=== PATIENT | male | born 1995 | race Caucasian/White ===

== ENCOUNTER 2017-10-31 15:12 | Emergency (ER) | payer OTHER ==
[2017-10-31] MEDS ORDERED: KETOROLAC 15 MG/1 ML SDV IVP ONE (15:59)
--- NOTE | 2017-10-31 16:01 | EDPHY ---
H & P Stated Complaint: r flank abd pain n/v Time Seen by Provider: 10/31/17 15:55 HPI/ROS: CHIEF COMPLAINT: Left flank and abdominal pain since 1:00 p.m. Today HISTORY OF PRESENT ILLNESS: 22-year-old male drove himself to the ER complaining of acute onset left flank pain radiating to his left lower abdomen since 1:00 p.m. Today. No trauma. Positive nausea and vomiting. No urinary abnormality such as dysuria hematuria increased frequency. No chest pain. No testicular pain. No back or flank pain. REVIEW OF SYSTEMS: 10 systems reviewed and negative with the exception of the elements mentioned in the history of present illness PAST MEDICAL & SURGICAL HISTORY: No pertinent medical or surgical history. No history of abdominal surgeries SOCIAL HISTORY: Student nonsmoker PHYSICAL EXAM (Prior to examination, patient consented to physical exam, hands were washed and my usual and customary physical exam procedures followed) 1) GENERAL: Well-developed, well-nourished, alert and oriented. Appears anxious and uncomfortable. 2) HEAD: Normocephalic, atraumatic 3) HEENT: Pupils equal, round, reactive to light bilaterally. Sclera anicteric. Nasopharynx, oropharynx, clear, no lesions. Dry mucous membranes. 4) NECK: Full range of motion, no meningeal signs. 5) LUNGS: Clear auscultation bilaterally, no wheezes, no rhonchi, no retractions. 6) HEART: Regular rate and rhythm, no murmur, no heave, no gallop. 7) ABDOMEN: No guarding, no rebound, no focal tenderness, negative McBurney's, negative Mack's, negative Rovsing's, negative peritoneal sign, unable to elicit abdominal pain on exam. 8) MUSCULOSKELETAL: Moving all extremities, no focal areas of tenderness, no obvious trauma. No peripheral edema or discoloration. 9) BACK: No CVA tenderness, no midline vertebral tenderness, no fluctuance, no step-off, no obvious trauma, no visual or palpable abnormality. 10) SKIN: No rash, no petechiae. 11) : Normal male external genitalia, circumcised, bilateral testicles nontender, no high-riding testicle, bilateral cremasteric reflex present and brisk. DIFFERENTIAL DIAGNOSIS: My differential diagnosis includes, but is not limited to, acute appendicitis, acute cholecystitis, bowel obstruction, acute pancreatitis, nephrolithiasis, testicular torsion, gastritis and urinary tract infection. The patient understands that this diagnosis is provisional and can never be 100% accurate. This is a partial list of diagnoses considered. These considerations are based on history, physical exam, past history and reassessment. - Personal History Current Tetanus Diphtheria and Acellular Pertussis (TDAP): Yes - Medical/Surgical History Hx Asthma: No Hx Chronic Respiratory Disease: No Hx Diabetes: No Hx Cardiac Disease: No Hx Renal Disease: No Hx Cirrhosis: No Hx Alcoholism: No Hx HIV/AIDS: No Hx Splenectomy or Spleen Trauma: No Other PMH: denies - Social History Smoking Status: Never smoked Constitutional: Initial Vital Signs Temperature (C) 36.3 C 10/31/17 15:17 Heart Rate 77 10/31/17 15:17 Respiratory Rate 18 10/31/17 15:17 Blood Pressure 103/68 10/31/17 15:17 O2 Sat (%) 100 10/31/17 15:17 O2 Delivery Mode Room Air Allergies/Adverse Reactions: No Known Allergies Allergy (Unverified 10/31/17 15:17) Home Medications: Medication Instructions Recorded Cephalexin [Keflex] 500 mg PO TID 7 Days cap 10/31/17 Hydrocodone/APAP 5/325 [[place] 1 tab PO Q6 PRN #15 tab 10/31/17 5/325 (RX)] Tamsulosin HCl [Flomax] 0.4 mg PO DAILY #7 cap 10/31/17 Medical Decision Making - Diagnostics Imaging Results: Imaging Impressions Abdomen/Pelvis CT 10/31/17 15:59 Impression: 1. 5 mm proximal left ureteral stone with mild obstructive uropathy. 2. Punctate nephrolithiasis. 3. Additional findings as above. Findings discussed with Shelby Ocasio, 10/31/2017 at 16:45. Attention: This CT examination is specifically designed to evaluate patients who are clinically suspected of having acute obstructive uropathy. This examination does not use radiographic contrast and provides only a limited evaluation of the abdomen, pelvis and retroperitoneum. If there is further clinical suspicion for pathological conditions other than obstructive uropathy, a complete CT evaluation of the abdomen and pelvis utilizing intravenous and enteric contrast should be considered. Images reviewed myself ED Course/Re-evaluation: 5:05 p.m.: Re-evaluation, he is smiling, pain-free. Discussed with him his imaging laboratory results. Normal creatinine, 5 mm stone at the proximal ureter with bacteriuria and pyuria present. This will be cultured daily started on Keflex. Will initiate Flomax therapy. No definitive contraindications to Flomax when speaking with the patient further. He feels comfortable being discharged. He will need follow-up with urologist has been given this referral information. He has been given my usual and customary urologic precautions instructions and feels comfortable being discharged. I saw this patient independently based on established practice protocols. Care of patient under supervision of secondary supervising physician Dr Munoz with whom I discussed case. - Data Points Laboratory Results: Laboratory Results 10/31/17 15:59 10/31/17 15:59 10/31/17 10/31/17 10/31/17 15:59 15:59 15:19 WBC 17.31 10^3/uL H 10^3/uL (3.80-9.50) RBC 5.19 10^6/uL 10^6/uL (4.40-6.38) Hgb 15.2 g/dL g/dL (13.7-17.5) Hct 44.4 % % (40.0-51.0) MCV 85.5 fL fL (81.5-99.8) MCH 29.3 pg pg (27.9-34.1) MCHC 34.2 g/dL g/dL (32.4-36.7) RDW 12.4 % % (11.5-15.2) Plt Count 254 10^3/uL 10^3/uL (150-400) MPV 10.2 fL fL (8.7-11.7) Neut % (Auto) 87.1 % H % (39.3-74.2) Lymph % (Auto) 7.6 % L % (15.0-45.0) [place] % (Auto) 4.3 % L % (4.5-13.0) Eos % (Auto) 0.2 % L % (0.6-7.6) Baso % (Auto) 0.3 % % (0.3-1.7) Nucleat RBC Rel Count 0.0 % % (0.0-0.2) Absolute Neuts (auto) 15.10 10^3/uL H 10^3/uL (1.70-6.50) Absolute Lymphs (auto) 1.31 10^3/uL 10^3/uL (1.00-3.00) Absolute Monos (auto) 0.74 10^3/uL 10^3/uL (0.30-0.80) Absolute Eos (auto) 0.03 10^3/uL 10^3/uL (0.03-0.40) Absolute Basos (auto) 0.05 10^3/uL 10^3/uL (0.02-0.10) Absolute Nucleated RBC 0.00 10^3/uL 10^3/uL (0-0.01) Immature Gran % 0.5 % % (0.0-1.1) Immature Gran # 0.08 10^3/uL 10^3/uL (0.00-0.10) Sodium 138 mEq/L mEq/L (135-145) Potassium 4.2 mEq/L mEq/L (3.3-5.0) Chloride 102 mEq/L mEq/L (97-110) Carbon Dioxide 22 mEq/l mEq/l (22-31) Anion Gap 14 mEq/L mEq/L (8-16) BUN 13 mg/dL mg/dL (7-23) Creatinine 1.1 mg/dL mg/dL (0.7-1.3) Estimated GFR > 60 Glucose 171 mg/dL H mg/dL (70-100) Calcium 9.9 mg/dL mg/dL (8.5-10.4) Total Bilirubin 0.7 mg/dL mg/dL (0.1-1.4) Conjugated Bilirubin 0.1 mg/dL mg/dL (0.0-0.5) Unconjugated Bilirubin 0.6 mg/dL mg/dL (0.0-1.1) AST 20 IU/L IU/L (17-59) ALT 26 IU/L IU/L (21-72) Alkaline Phosphatase 60 IU/L IU/L (38-126) Total Protein 7.1 g/dL g/dL (6.3-8.2) Albumin 4.7 g/dL g/dL (3.5-5.0) Lipase 70 IU/L IU/L (23-300) Urine Color HALEY Urine Appearance MODERATELY TURBID Urine pH 5.0 (5.0-7.5) Ur Specific [place] 1.029 (1.002-1.030) Urine Protein 2+ H (NEGATIVE) Urine Ketones 1+ H (NEGATIVE) Urine Blood 3+ H (NEGATIVE) Urine Nitrate NEGATIVE (NEGATIVE) Urine Bilirubin NEGATIVE (NEGATIVE) Urine Urobilinogen 2.0 EU H EU (0.2-1.0) Ur Leukocyte Esterase NEGATIVE (NEGATIVE) Urine RBC 50-182 /hpf H /hpf (0-3) Urine WBC 5-10 /hpf H /hpf (0-3) Ur Epithelial Cells TRACE /lpf /lpf (NONE-1+) Calcium Oxalate Crystal PRESENT /hpf /hpf (NONE-1+) Urine Bacteria 1+ /hpf H /hpf (NONE SEEN) Urine Mucus 4+ /lpf H /lpf (NONE-1+) Urine Glucose NEGATIVE (NEGATIVE) Medications Given: Discontinued Medications Cephalexin HCl (Keflex) 500 mg PO EDNOW ONE PRN Reason: Protocol Stop: 10/31/17 17:04 Last Admin: 10/31/17 17:13 Dose: 500 mg Ketorolac Tromethamine (Toradol) 15 mg IVP EDNOW ONE Stop: 10/31/17 16:00 Last Admin: 10/31/17 16:09 Dose: 15 mg Ondansetron HCl (Zofran) 4 mg IVP EDNOW ONE Stop: 10/31/17 16:19 Last Admin: 10/31/17 16:19 Dose: 4 mg Tamsulosin HCl (Flomax) 0.4 mg PO EDNOW ONE Stop: 10/31/17 17:04 Last Admin: 10/31/17 17:13 Dose: 0.4 mg Departure - Departure Disposition: Home, Routine, Self-Care Clinical Impression: Ureteric stone Condition: Good Instructions: Kidney Stones (ED), Renal Colic (ED) Additional Instructions: Return to the emergency department if you develop worsening pain, if you developed vomiting or any other symptoms that concern you. Referrals: Reid Maradiaga MD [Medical Doctor] - As per Instructions Prescriptions: Cephalexin [Keflex] 500 mg PO TID 7 Days cap Hydrocodone/APAP 5/325 [[place] 5/325 (RX)] 1 tab PO Q6 PRN #15 tab PRN Reason: Pain, Severe Tamsulosin HCl [Flomax] 0.4 mg PO DAILY #7 cap
[2017-10-31 16:09] LABS: PLATELET COUNT 254 10^3/uL (150-400)
[2017-10-31] MEDS ORDERED: ONDANSETRON 4 MG/2 ML VIAL ONE (16:14)
[2017-10-31] MEDS ORDERED: ONDANSETRON 4 MG/2 ML VIAL IVP ONE (16:18)
[2017-10-31] MEDS ORDERED: CEPHALEXIN 500 MG CAP PO ONE (17:03)
[2017-10-31] MEDS ORDERED: TAMSULOSIN HCL 0.4 MG CAP PO ONE (17:03)
[2017-10-31 17:30] VITALS: BP 115/80
== END 2017-10-31 17:30 | disposition home or self-care (01) ==
DX: N20.1 Calculus of ureter (principal)
CPT/HCPCS: 96374; J1885; J2405

== ENCOUNTER 2017-11-19 15:16 | Emergency (ER) | payer OTHER ==
[2017-11-19] MEDS ORDERED: KETOROLAC 30 MG/1 ML SDV IVP ONE (15:43)
[2017-11-19] MEDS ORDERED: HYDROmorphONE/DILAUDID 2 MG/ML INJ IVP ONE (15:43)
[2017-11-19] MEDS ORDERED: ONDANSETRON 4 MG/2 ML VIAL IVP ONE (15:43)
[2017-11-19] MEDS ORDERED: NS 1,000 ML IV ONE ×2 (15:43→16:32)
--- NOTE | 2017-11-19 15:46 | EDPHY ---
H & P Time Seen by Provider: 11/19/17 15:29 HPI/ROS: CHIEF COMPLAINT: Left-sided abdominal pain HISTORY OF PRESENT ILLNESS: Patient was seen in our emergency department on October [address] scan which showed 5 mm left-sided ureteral stone as well as punctate stone in his left kidney and 2 more on the right. He did see Dr. Jair finch Hiren in follow-up and has had minimal on and off pain on the left flank for the last couple of weeks but today at 10:00 a.m. The pain became very severe and located in his left lower abdomen. Radiates to his penis. Not associated with fever chills or diarrhea, or any difference or change with movement. Currently severe. Has vomiting. REVIEW OF SYSTEMS: Eye: no change in vision ENT: no sore throat Cardiac: no chest pain or syncope Pulmonary: no cough or SOB Abdomen: HPI Musculoskeletal: HPI Skin: no rash Neuro: no headache Constitutional: no fever : no urinary symptoms A comprehensive 10 point review of systems is otherwise negative aside from elements mentioned in the history of present illness. PAST MEDICAL HISTORY: Renal colic diagnosed 10/31/2017 in our ED Social history: He was driven to the ED by a friend, nonsmoker General Appearance: Alert and conversant, cooperative. Eyes: No scleral icterus. ENT, Mouth: Normal mucous membranes. Respiratory: Normal respiratory effort, breath sounds equal, lungs are clear to auscultation. Cardiovascular: Regular rate and rhythm. Gastrointestinal: Abdomen is soft and non tender. Male normal, specifically no hernia and normal testicles and penis. No rebound or guarding. Neurological: Alert, face symmetric, normal motor and sensory in extremities. Skin: Warm and dry, no rashes. Musculoskeletal: No peripheral edema. Psychiatric: Not agitated. Emergency Department course/MDM: Likely recurrent renal colic, either from his previously diagnosed 5 mm stone or the other 1 that was in his kidney. Plan for i-STAT, urinalysis, IV Dilaudid 0.5 mg and Toradol 15 mg, and Zofran 4 mg. I think it is unlikely that he has appendicitis, incarcerated hernia, bowel obstruction, other acute surgical abdominal process, pyelonephritis. 1630: Patient is comfortable, will discharge if his urine shows no signs of infection. Patient is requesting Flomax which he tolerated well without any previous side effects, and I think that is reasonable. 1720: Urine dip shows blood without evidence of infection, patient's pain is adequately controlled, stable for discharge. Smoking Status: Never smoked Constitutional: Initial Vital Signs Temperature (C) 36.4 C 11/19/17 15:24 Heart Rate 78 11/19/17 15:24 Respiratory Rate 17 11/19/17 15:24 Blood Pressure 102/64 11/19/17 15:24 O2 Sat (%) 100 11/19/17 15:24 O2 Delivery Mode Room Air Allergies/Adverse Reactions: No Known Allergies Allergy (Verified 11/19/17 15:24) Home Medications: Medication Instructions Recorded Hydrocodone/APAP 5/325 [[place] 1 tab PO Q6 PRN #15 tab 10/31/17 5/325 (RX)] Tamsulosin HCl [Flomax 0.4 MG (*)] 0.4 mg PO DAILY #10 cap 11/19/17 Medical Decision Making Differential Diagnosis: Differential considered including but not limited to hernia, urinary tract infection, renal colic, diverticulitis, testicular torsion, appendicitis. - Data Points Laboratory Results: 11/19/17 11/19/17 17:06 15:57 POC Hgb 14.6 gm/dL gm/dL (13.7-17.5) POC Hct 43 % % (40-51) POC Sodium 141 mEq/L mEq/L (135-145) POC Potassium 3.9 mEq/L mEq/L (3.3-5.0) POC Chloride 103 mEq/L mEq/L (97-110) POC BUN 18 mg/dL mg/dL (7-23) POC Creatinine 1.1 mg/dL mg/dL (0.7-1.3) POC Glucose 129 mg/dL H mg/dL (70-100) Urine Color Pending Urine Appearance Pending Urine pH Pending Ur Specific [place] Pending Urine Protein Pending Urine Ketones Pending Urine Blood Pending Urine Nitrate Pending Urine Bilirubin Pending Urine Urobilinogen Pending Ur Leukocyte Esterase Pending Urine Glucose Pending Medications Given: Discontinued Medications Hydromorphone HCl (Dilaudid) 0.5 mg IVP EDNOW ONE Stop: 11/19/17 15:44 Last Admin: 11/19/17 15:56 Dose: 0.5 mg Sodium Chloride (Ns) 1,000 mls @ 0 mls/hr IV EDNOW ONE; Wide Open PRN Reason: Protocol Stop: 11/19/17 15:44 Last Admin: 11/19/17 15:55 Dose: 1,000 mls Sodium Chloride (Ns) 1,000 mls @ 0 mls/hr IV EDNOW ONE; Wide Open PRN Reason: Protocol Stop: 11/19/17 16:33 Last Admin: 11/19/17 16:38 Dose: 1,000 mls Ketorolac Tromethamine (Toradol) 15 mg IVP EDNOW ONE Stop: 11/19/17 15:44 Last Admin: 11/19/17 15:56 Dose: 15 mg Ondansetron HCl (Zofran) 4 mg IVP EDNOW ONE Stop: 11/19/17 15:44 Last Admin: 11/19/17 15:56 Dose: 4 mg Tamsulosin HCl (Flomax) 0.4 mg PO EDNOW ONE Stop: 11/19/17 17:18 Last Admin: 11/19/17 17:20 Dose: 0.4 mg Point of Care Test Results: Chemistry 11/19/17 15:57 POC Sodium 141 mEq/L mEq/L (135-145) POC Potassium 3.9 mEq/L mEq/L (3.3-5.0) POC Chloride 103 mEq/L mEq/L (97-110) POC BUN 18 mg/dL mg/dL (7-23) POC Creatinine 1.1 mg/dL mg/dL (0.7-1.3) POC Glucose 129 mg/dL H mg/dL (70-100) ISTAT H&H 11/19/17 15:57 POC Hgb 14.6 gm/dL gm/dL (13.7-17.5) POC Hct 43 % % (40-51) Urine Dip Leukocytes (Negative) Negative Blood (Negative) 3+ Departure - Departure Disposition: Home, Routine, Self-Care Clinical Impression: Renal colic on left side Condition: Good Instructions: Renal Colic (ED) Referrals: Reid Maradiaga MD [Medical Doctor] - As per Instructions Prescriptions: Tamsulosin HCl [Flomax 0.4 MG (*)] 0.4 mg PO DAILY #10 cap
[2017-11-19] MEDS ORDERED: TAMSULOSIN HCL 0.4 MG CAP PO ONE (17:17)
[2017-11-19 17:26] VITALS: BP 107/71
== END 2017-11-19 17:32 | disposition home or self-care (01) ==
DX: R10.32 Left lower quadrant pain (principal); R11.10 Vomiting, unspecified; N23 Unspecified renal colic; E86.9 Volume depletion, unspecified; Z87.442 Personal history of urinary calculi
CPT/HCPCS: 82435-PO; 82565-PO; 82947-PO; 84132-PO; 84295-PO; 84520-PO; 85014-PO; 96374; J1170; J1885; J2405

== ENCOUNTER 2017-12-01 23:57 | Observation (INO) | payer OTHER ==
[2017-12-02] MEDS ORDERED: NS 1,000 ML IV ONE ×2 (00:28→01:24)
[2017-12-02] MEDS ORDERED: HYDROmorphONE/DILAUDID 2 MG/ML INJ IVP ONE (00:28)
[2017-12-02] MEDS ORDERED: KETOROLAC 30 MG/1 ML SDV IVP ONE (00:28)
[2017-12-02] MEDS ORDERED: ONDANSETRON 4 MG/2 ML VIAL IVP ONE (00:45)
[2017-12-02 01:11] LABS: PLATELET COUNT 264 10^3/uL (150-400)
--- NOTE | 2017-12-02 02:15 | EDPHY ---
H & P Stated Complaint: left flank pain - Personal History Current Tetanus/Diphtheria Vaccine: Yes Current Tetanus Diphtheria and Acellular Pertussis (TDAP): Yes - Medical/Surgical History Hx Asthma: No Hx Chronic Respiratory Disease: No Hx Diabetes: No Hx Cardiac Disease: No Hx Renal Disease: No Hx Cirrhosis: No Hx Alcoholism: No Hx HIV/AIDS: No Hx Splenectomy or Spleen Trauma: No Other PMH: kidney stones - Social History Smoking Status: Never smoked Time Seen by Provider: 12/02/17 00:10 HPI/ROS: Chief complaint: Left flank pain, history of kidney stone History of present illness: This is a 22-year-old male who presents to the emergency department for left flank pain. He has had intermittent left flank pain for approximately the last month. He was initially seen in this emergency department about a month ago and diagnosed with a 5 mm kidney stone. Since then he has been followed by Dr. Maradiaga. Currently it is believed that the kidney stone is imbedded in his bladder per the patient. He takes Flomax and pain medication. However this evening the pain worsened and therefore he presents here. He does state there is some pain with urination. He denies fevers, he denies nausea, vomiting or diarrhea, he denies abdominal pain. Review of systems: A 10 point review of systems was obtained and other than described above was negative (Sher Solis) - Physical Exam Exam: General Appearance: Alert, nontoxic. Eyes: Pupils equal and round no pallor or injection. ENT, Mouth: Mucous membranes moist. Respiratory: There are no retractions, lungs are clear to auscultation. Cardiovascular: Regular rate and rhythm. Gastrointestinal: Abdomen is soft and non tender, no masses, bowel sounds normal. Genitourinary: No CVA tenderness. Neurological: Alert and oriented x4. Skin: Warm and dry, no rashes. Musculoskeletal: Neck is supple non tender. Extremities are symmetrical, full range of motion. Psychiatric: Patient is oriented X 3, there is no agitation. (Sher Solis) Constitutional: Initial Vital Signs Temperature (C) 36.8 C 12/01/17 23:58 Heart Rate 89 12/01/17 23:58 Respiratory Rate 16 12/01/17 23:58 Blood Pressure 120/81 H 12/01/17 23:58 O2 Sat (%) 94 12/01/17 23:58 O2 Delivery Mode Room Air Allergies/Adverse Reactions: No Known Allergies Allergy (Verified 12/02/17 00:00) Home Medications: Medication Instructions Recorded Hydrocodone/Acetaminophen [[place] 2 each PO Q6H PRN 12/02/17 5/325 (*)] Ibuprofen [Motrin (*)] 200 - 400 mg PO DAILY PRN 12/02/17 Ondansetron Odt [Zofran Odt 4 mg 4 mg PO Q4H PRN 12/02/17 (*)] Medical Decision Making ED Course/Re-evaluation: Patient is seen under the supervision of my secondary supervising physician Dr. Micah Sahni. Patient presents to the emergency department for worsening flank pain. He is nontoxic. He is symptomatically treated with improvement in pain. Blood studies and urine are obtained. I am concerned as his creatinine has increased from his previous visit. Therefore he will undergo a CT scan to ensure no obstructive uropathy or other concerning findings. This is pending at time of dictation. Care of patient is turned over to my attending physician Dr. Sahni at end of shift. (Sher Solis) Differential Diagnosis: CT scan abdomen pelvis without contrast shows right-sided UVJ stone. Moderate to severe hydro. Given his elevated creatinine, hydronephrosis, obstructing stone. Plan will be for admission the hospital service for Urology to see. (Micah Sahni) - Data Points Laboratory Results: Laboratory Results 12/02/17 00:45 12/02/17 00:45 Microbiology Results: MICROBIOLOGY 12/02/17 00:01 Unspecified Urine Culture - Preliminary Medications Given: Discontinued Medications Hydromorphone HCl (Dilaudid) 0.5 mg IVP EDNOW ONE Stop: 12/02/17 00:29 Last Admin: 12/02/17 00:40 Dose: 0.5 mg Sodium Chloride (Ns) 1,000 mls @ 0 mls/hr IV EDNOW ONE; Wide Open PRN Reason: Protocol Stop: 12/02/17 00:29 Last Admin: 12/02/17 00:39 Dose: 1,000 mls Sodium Chloride (Ns) 1,000 mls @ 0 mls/hr IV EDNOW ONE; Wide Open PRN Reason: Protocol Stop: 12/02/17 01:25 Last Admin: 12/02/17 01:45 Dose: 1,000 mls Sodium Chloride (Ns) 1,000 mls @ 150 mls/hr IV CONT ROWAN Stop: 05/31/18 02:29 Last Admin: 12/03/17 04:27 Dose: 1,000 mls Cefazolin Sodium/Dextrose (Ancef 2 Gm) 100 mls @ 200 mls/hr IV ONCALL ONE PRN Reason: Protocol Stop: 12/03/17 07:59 Last Admin: 12/03/17 08:12 Dose: 100 mls Iopamidol (Isovue-M 300) Confirm Administered Dose 15 ml .ROUTE .STK-MED ONE Stop: 12/03/17 07:32 Last Admin: 12/03/17 08:35 Dose: 15 ml Iopamidol (Isovue-M 300) Confirm Administered Dose 15 ml .ROUTE .STK-MED ONE Stop: 12/03/17 07:32 Last Admin: 12/03/17 08:36 Dose: 15 ml Ketorolac Tromethamine (Toradol) 15 mg IVP EDNOW ONE Stop: 12/02/17 00:29 Last Admin: 12/02/17 00:40 Dose: 15 mg Lidocaine (Uroject Lidocaine 2% Jelly) Confirm Administered Dose 20 ml .ROUTE .STK-MED ONE Stop: 12/03/17 07:32 Last Admin: 12/03/17 08:35 Dose: 20 ml Ondansetron HCl (Zofran) 4 mg IVP EDNOW ONE Stop: 12/02/17 00:46 Last Admin: 12/02/17 00:47 Dose: 4 mg Departure - Departure Disposition: [facility] Acute Clinical Impression: Renal colic on left side Condition: Good
[2017-12-02] MEDS ORDERED: ACETAMINOPHEN 325 MG TAB PO PRN (02:29)
[2017-12-02] MEDS ORDERED: oxyCODONE IR 5 MG TAB PO PRN (02:29)
[2017-12-02] MEDS ORDERED: ONDANSETRON 4 MG/2 ML VIAL IVP PRN (02:29)
[2017-12-02] MEDS ORDERED: ONDANSETRON DISINTEGRATING 4 MG TAB PO PRN (02:29)
[2017-12-02] MEDS ORDERED: IBUPROFEN 200 MG TAB PO PRN (02:29)
--- NOTE | 2017-12-02 03:09 | PDGENHP ---
History and Physical - Chief Complaint Flank pain - History of Present Illness 22 yo M presents with L flank pain. He was initially diagnosed with a kidney stone in late October. He has had symptoms on and off from this over the past 3 weeks. He takes PRN Vicodin for pain control. Over the past 2 days, however, his pain has been difficult to control. He complains of L back, flank, abdominal , and testicular pain. He also has significant discomfort when urinating. Evaluation in the ED notable for creatinine of 1.6. Additionally, CT notable for 3x6 mm stone at L UVJ with moderate hydronephrosis. The patient is being admitted for pain control, hydration, and possibly urology consultation. Case discussed with ED physician Dr. Flower; records reviewed in EMR. History Information - Allergies/Home Medication List Allergies/Adverse Reactions: No Known Allergies Allergy (Verified 12/02/17 00:00) Home Medications: Vicodin 5-300 mg Tablet 12/02/17 [Last Taken Unknown] Zofran Odt 12/02/17 [Last Taken Unknown] I have personally reviewed and updated: family history, medical history - Past Medical History Additional medical history: Nephrolithiasis - Surgical History Reports: no pertinent surgical hx - Family History Additional family history: Denies family hx of kidney stones - Social History Smoking Status: Never smoked Review of Systems Review of Systems: ROS: 10pt was reviewed & negative except for what was stated in HPI & below Physical Exam Physical Exam: Temp Pulse Resp BP Pulse Ox 36.8 C 74 16 127/82 H 94 12/01/17 23:58 12/02/17 00:00 12/02/17 00:00 12/02/17 00:00 12/02/17 00:00 Constitutional: appears nourished, uncomfortable Eyes: PERRL, EOMI Ears, Nose, Mouth, Throat: moist mucous membranes, no oral mucosal ulcers Cardiovascular: regular rate and rhythym, no murmur, rub, or gallop Respiratory: no respiratory distress, clear to auscultation Gastrointestinal: normoactive bowel sounds, soft, non-tender abdomen Skin: warm, normal color Musculoskeletal: full muscle strength, no muscle tenderness Neurologic: AAOx3, CN II-XII Intact Psychiatric: interacting appropriately, not anxious Lab Data & Imaging Review 12/02/17 00:45 12/02/17 00:45 WBC 10.46 10^3/uL (3.80-9.50) H 12/02/17 00:45 RBC 5.11 10^6/uL (4.40-6.38) 12/02/17 00:45 Hgb 14.9 g/dL (13.7-17.5) 12/02/17 00:45 Hct 44.2 % (40.0-51.0) 12/02/17 00:45 MCV 86.5 fL (81.5-99.8) 12/02/17 00:45 MCH 29.2 pg (27.9-34.1) 12/02/17 00:45 MCHC 33.7 g/dL (32.4-36.7) 12/02/17 00:45 RDW 12.6 % (11.5-15.2) 12/02/17 00:45 Plt Count 264 10^3/uL (150-400) 12/02/17 00:45 MPV 10.2 fL (8.7-11.7) 12/02/17 00:45 Neut % (Auto) 64.7 % (39.3-74.2) 12/02/17 00:45 Lymph % (Auto) 21.9 % (15.0-45.0) 12/02/17 00:45 [place] % (Auto) 11.1 % (4.5-13.0) 12/02/17 00:45 Eos % (Auto) 1.5 % (0.6-7.6) 12/02/17 00:45 Baso % (Auto) 0.5 % (0.3-1.7) 12/02/17 00:45 Nucleat RBC Rel Count 0.0 % (0.0-0.2) 12/02/17 00:45 Absolute Neuts (auto) 6.77 10^3/uL (1.70-6.50) H 12/02/17 00:45 Absolute Lymphs (auto) 2.29 10^3/uL (1.00-3.00) 12/02/17 00:45 Absolute Monos (auto) 1.16 10^3/uL (0.30-0.80) H 12/02/17 00:45 Absolute Eos (auto) 0.16 10^3/uL (0.03-0.40) 12/02/17 00:45 Absolute Basos (auto) 0.05 10^3/uL (0.02-0.10) 12/02/17 00:45 Absolute Nucleated RBC 0.00 10^3/uL (0-0.01) 12/02/17 00:45 Immature Gran % 0.3 % (0.0-1.1) 12/02/17 00:45 Immature Gran # 0.03 10^3/uL (0.00-0.10) 12/02/17 00:45 Sodium 140 mEq/L (135-145) 12/02/17 00:45 Potassium 4.1 mEq/L (3.3-5.0) 12/02/17 00:45 Chloride 104 mEq/L (97-110) 12/02/17 00:45 Carbon Dioxide 26 mEq/l (22-31) 12/02/17 00:45 Anion Gap 10 mEq/L (6-14) 12/02/17 00:45 BUN 16 mg/dL (7-23) 12/02/17 00:45 Creatinine 1.6 mg/dL (0.7-1.3) H 12/02/17 00:45 Estimated GFR 54 12/02/17 00:45 Glucose 102 mg/dL (70-100) H 12/02/17 00:45 Calcium 9.6 mg/dL (8.5-10.4) 12/02/17 00:45 Urine Color YELLOW 12/02/17 00:01 Urine Appearance MODERATELY TURBID 12/02/17 00:01 Urine pH 6.0 (5.0-7.5) 12/02/17 00:01 Ur Specific [place] 1.023 (1.002-1.030) 12/02/17 00:01 Urine Protein NEGATIVE (NEGATIVE) 12/02/17 00:01 Urine Ketones TRACE (NEGATIVE) H 12/02/17 00:01 Urine Blood 1+ (NEGATIVE) H 12/02/17 00:01 Urine Nitrate NEGATIVE (NEGATIVE) 12/02/17 00:01 Urine Bilirubin NEGATIVE (NEGATIVE) 12/02/17 00:01 Urine Urobilinogen NEGATIVE EU (0.2-1.0) 12/02/17 00:01 Ur Leukocyte Esterase NEGATIVE (NEGATIVE) 12/02/17 00:01 Urine RBC 10-15 /hpf (0-3) H 12/02/17 00:01 Urine WBC 1-3 /hpf (0-3) 12/02/17 00:01 Ur Epithelial Cells NONE SEEN /lpf (NONE-1+) 12/02/17 00:01 Calcium Oxalate Crystal PRESENT /hpf (NONE-1+) 12/02/17 00:01 Amorphous Sediment PRESENT /hpf (NONE-1+) 12/02/17 00:01 Urine Mucus 1+ /lpf (NONE-1+) 12/02/17 00:01 Urine Glucose NEGATIVE (NEGATIVE) 12/02/17 00:01 Imaging Review: 1-2 mm calc LP RK, without chg from one month ago There is a 3 x 6 mm distal left ureterolith at UVJ with moderate upstream hydroureter (this had been at the L4 level on the prior). Discussed with Dr. Sahni at 2:23 am. MB Assessment & Plan Assessment: 22 yo M presents with urolithiasis, hydronephrosis, and CARLOS. Plan: 1. Urolithiasis - Obstructing 3x6 mm calculus noted on CT at L UVJ. This stone has been present since October but has migrated distally since initial evaluation. Pain has significantly worsened over the last 2 days. UA not concerning for infection. - Admit for observation - Continue aggressive hydration, s/p 2 L IVF, will continue 150 mL/hr - Pain control and anti-emetics PRN - Noting size of stone this should theoretically pass with hydration, however, if symptoms persistent may require urology intervention 2. Hydronephrosis - 2/2 #1; may require urology consultation if stone not passing with hydration alone. 3. CARLOS - Creatinine 1.6 on admission, this is likely related to obstruction and possibly due to ongoing NSAID use as well. - Monitor BMP - Avoid nephrotoxic agents Diet - Regular Code - Full Ppx - Low risk, ambulate TID Dispo - Admit under observation status
--- NOTE | 2017-12-02 10:08 | HOSPPROG ---
Hospitalist Progress Note Assessment/Plan: * Left ureter stone * has been going on for a month * d/w urology. probably take stone out tomorrow * no sign infection * ARF * ?d/t hydronephrosis * not better with fluids * cont to watch * hold NSAID's Subjective: still with pain Objective: Vital Signs Temp Pulse Resp BP Pulse Ox 36.5 C 64 16 106/69 96 12/02/17 08:52 12/02/17 08:52 12/02/17 08:52 12/02/17 08:52 12/02/17 08:52 Laboratory Results 12/02/17 04:46 12/01/17 12/02/17 12/03/17 05:59 05:59 05:59 Intake Total 2763 Balance 2763 - Physical Exam Constitutional: no apparent distress, appears nourished, not in pain Eyes: anicteric sclera, EOMI Ears, Nose, Mouth, Throat: moist mucous membranes, hearing normal Cardiovascular: regular rate and rhythym Respiratory: no respiratory distress Neurologic: AAOx3 Psychiatric: interacting appropriately, not anxious, not encephalopathic, thought process linear ICD10 Worksheet Patient Problems: Problems Problem Status Onset Renal colic on left side Acute
[2017-12-02] MEDS ORDERED: HYDROmorphONE/DILAUDID 1 MG/ML INJ IVP PRN (10:09)
--- NOTE | 2017-12-02 10:29 | ASMTCMCOM ---
CM Note CM Note Notes: Pt is a 22 y/o man admitted for obstructing stone. Pt may have stone removed tomorrow. Urology have been consulted. Pt will most likely d/c independent when medically stable. No therapies ordered at this time. CM available for changes. Plan: Independent Date Signed: 12/02/2017 10:28 AM Electronically Signed By:JOY Avila
--- NOTE | 2017-12-02 10:35 | SOAPPROG ---
[facility] Progress Note Assessment/Plan: Assessment: Renal colic on left side Acute discussed plan for ureteroscopy for removal if pt does not pass today Plan: Ureteroscope in AM if pt does not pass 12/02/17 10:33 Subjective: stone pain noted Objective: Vital Signs Temp Pulse Resp BP Pulse Ox 36.5 C 64 16 106/69 96 12/02/17 08:52 12/02/17 08:52 12/02/17 08:52 12/02/17 08:52 12/02/17 08:52 Laboratory Results 12/02/17 04:46 12/01/17 12/02/17 12/03/17 05:59 05:59 05:59 Intake Total 2763 Balance 2763 Physical Exam - Physical Exam General Appearance: alert Neck: supple Respiratory: lungs clear Cardiac/Chest: regular rate, rhythm Abdomen: soft Back: CVA tenderness, Other (urgency) Skin: warm/dry Extremities: No calf tenderness, No Gustavo's sign Neuro/Psych: alert, oriented x 3 ICD10 Worksheet Patient Problems: Problems Problem Status Onset Renal colic on left side Acute
[2017-12-02] MEDS ORDERED: ceFAZolin 2 GM/DEXTROSE 100 ML IV ONE (10:38)
--- NOTE | 2017-12-02 11:34 | GCON ---
ADMISSION DIAGNOSES: Left ureteral hydronephrosis, ureterolithiasis, and ureteral colic with azotemi a. HISTORY OF PRESENT ILLNESS: This is a 22-year-old gentleman who developed a left ureteral calculus a nd was originally seen in October and has been followed as an outpatient. Dr. Maradiaga had seen dominic orosco in the office on December 01, and it was noted that he had a 5 mm proximal left ureteral stone. H e had had +1 bacteria with negative nitrites, treated with Keflex originally. KUB on 11/24/2017, herb ws 5 mm distal left stone, and renal ultrasound on 11/30/2017, showed mild left-sided pyelocaliectasi s. He has had persistent pain, and the stone has not passed. Dr. Maradiaga, it appears, placed him o n Flomax and planned on having him undergo ureteroscopic removal of the stone next week. The patient was seen in the emergency room and admitted to the hospitalist for unrelenting pain, and he also has midterms on Monday and was hoping to have the stone taken care of prior to the midterms. PAST SURGICAL HISTORY: No surgery. MEDICATIONS: The prior Keflex, hydrocodone, acetaminophen, and Flomax. ALLERGIES: To none. FAMILY HISTORY: Noncontributory. 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 REVIEW OF SYSTEMS: Negative cardiac, respiratory, GI, and endocrine. PHYSICAL EXAM: VITAL SIGNS: Originally was blood pressure 120/60, respirations 16, heart rate 81 an d regular, BMI 20.67, O2 sat on room air was 97%. Stable. CHEST: Clear. HEART: Regular rate and rhythm. ABDOMEN: Normal. No organomegaly, rebound, or guarding. He does have the left lower abdom inal pain, left flank pain, and urgency of urination. LOWER EXTREMITIES: Normal. LABORATORY DATA: He had a urinalysis in the office that showed trace blood, pH of 7.5, specific grav ity of 1.025, negative nitrite and negative leukocyte esterase. ASSESSMENT AND PLAN: At the present time, I have discussed the findings with him and outlined the op tions, and at the present time the plan is to hydrate him and give him pain control over the day and on Monday remove the stone at 8 a.m. if it does not pass spontaneously. Indications, complications, and expectations discussed. I tried to answer his questions to the best of my ability. I did review his CT scans from the , and the most recent scan that he had showed that he had the hydronephros is and left distal ureteral calculus that he has been admitted for. A total of 50 minutes have been taken in addressing this patient's problem, reviewing his chart, guerline rds, x-rays and discussing it with him. /[id number]/MODL
[2017-12-02] MEDS: NS 1,000 ML IV SCH ×2 (17:08→23:43)
[2017-12-03] MEDS: NS 1,000 ML IV SCH (04:27)
[2017-12-03] MEDS ORDERED: ceFAZolin 2 GM/DEXTROSE 100 ML IV ONE (07:30)
[2017-12-03] MEDS ORDERED: IOPAMIDOL (ISOVUE-M 300) 15 ML VIAL ONE ×2 (07:31)
[2017-12-03] MEDS ORDERED: LIDOCAINE 2% JELLY 20 ML (UROJECT) ONE (07:31)
[2017-12-03] MEDS ORDERED: MIDAZOLAM 2 MG/2 ML VIAL ONE (08:02)
[2017-12-03] MEDS ORDERED: fentaNYL 100 MCG/2 ML INJ ONE (08:02)
[2017-12-03] MEDS ORDERED: PROPOFOL/EMULSION 500 MG/50 ML BOTTLE IV ONE (08:03)
[2017-12-03] MEDS ORDERED: ROCURONIUM 50 MG/5 ML VIAL ONE (08:06)
[2017-12-03] MEDS ORDERED: GLYCOPYRROLATE 0.2 MG/1 ML VIAL ONE (08:06)
[2017-12-03] MEDS ORDERED: NEOSTIGMINE METHYLSULFATE 5 MG/5 ML SYR ONE (08:06)
[2017-12-03] MEDS ORDERED: DEXAMETHASONE 4 MG/ML VIAL ONE (08:06)
[2017-12-03] MEDS ORDERED: ONDANSETRON 4 MG/2 ML VIAL ONE (08:06)
[2017-12-03] MEDS ORDERED: METOCLOPRAMIDE 10 MG/2 ML VIAL ONE (08:06)
[2017-12-03] MEDS ORDERED: KETOROLAC 30 MG/1 ML SDV ONE (08:06)
--- NOTE | 2017-12-03 08:09 | PDANEPAE ---
ANE Past Medical History - Pulmonary History Hx Oxygen in Use at Home: No Hx Sleep Apnea: No Sleep Apnea Screening Result - Last Documented: Negative - Endocrine History Hx Diabetes: No ANE Review of Systems Review of Systems: ANE Patient History - Allergies Allergies/Adverse Reactions: No Known Allergies Allergy (Verified 12/02/17 00:00) - Home Medications Home Medications: Hydrocodone/Acetaminophen [[place] 5/325 (*)] 2 each PO Q6H PRN 12/02/17 [Last Taken 11/30/17] Ibuprofen [Motrin (*)] 200 - 400 mg PO DAILY PRN 12/02/17 [Last Taken Unknown] Ondansetron Odt [Zofran Odt 4 mg (*)] 4 mg PO Q4H PRN 12/02/17 [Last Taken 11/30] Tamsulosin HCl [Flomax 0.4 MG (*)] 0.4 mg PO DAILY 12/02/17 [Last Taken 12/01/17 ] - NPO status NPO Since - Liquids (Date): 12/02/17 NPO Since - Liquids (Time): 00:00 NPO Since - Solids (Date): 12/02/17 NPO Since - Solids (Time): 00:00 - Smoking Hx Smoking Status: Never smoked ANE Labs/Vital Signs - Labs Result Diagrams: 12/02/17 00:45 12/02/17 04:46 - Vital Signs Blood Pressure: 119/88 Heart Rate: 52 Respiratory Rate: 16 O2 Sat (%): 98 Height: 175.26 cm Weight: 63.796 kg ANE Physical Exam - Airway Neck exam: FROM Mallampati Score: Class 1 Mouth exam: normal dental/mouth exam - Pulmonary Pulmonary: no respiratory distress, no rales or rhonchi, clear to auscultation - Cardiovascular Cardiovascular: regular rate and rhythym, no murmur, rub, or gallop - ASA Status ASA Status: II ANE Anesthesia Plan Anesthesia Plan: GA w LMA
[2017-12-03] MEDS ORDERED: fentaNYL 100 MCG/2 ML INJ IVP PRN (08:27)
[2017-12-03] MEDS ORDERED: NALOXONE HCL 0.4 MG/ML INJ IVP PRN (08:27)
[2017-12-03] MEDS ORDERED: ONDANSETRON 4 MG/2 ML VIAL IVP PRN (08:27)
[2017-12-03] MEDS ORDERED: DIAZEPAM 5 MG/ML 1 ML SYR IVP PRN (08:27)
[2017-12-03] MEDS ORDERED: LR 500 ML IV PRN (08:27)
[2017-12-03] MEDS ORDERED: ALBUTEROL 3 ML DEYVIAL IH PRN (08:27)
[2017-12-03] MEDS ORDERED: PROMETHAZINE HCL 25 MG/ML INJ IVP PRN (08:27)
[2017-12-03] MEDS ORDERED: MEPERIDINE 25 MG/0.5 ML AMP IVP PRN (08:27)
[2017-12-03] MEDS ORDERED: METOCLOPRAMIDE 10 MG/2 ML VIAL IVP PRN (08:27)
[2017-12-03] MEDS ORDERED: HYDROCODONE/APAP 5/325 TAB PO PRN (08:27)
[2017-12-03] MEDS ORDERED: DEXAMETHASONE 4 MG/ML VIAL IVP PRN (08:27)
--- NOTE | 2017-12-03 09:07 | PDHPUP ---
History & Physical Update H&P update statement: This history and physical update is based on an assessment of the patient which was completed after admission or registration (within 24 hours), but prior to the surgery/procedure. H&P update: H&P reviewed & patient examined, no change in patient's condition since H&P completed
--- NOTE | 2017-12-03 09:08 | POSTOPPROG ---
Post Op Note Date of Operation: 12/03/17 (dictated) Surgeon: Simone Vergara Anesthesiologist: Patricia Anesthesia: LMA Pre-op Diagnosis: rt stone Procedure: ureteroscopy, stone, rup, ureteral meatotomy Inf/Abcess present in the surg proc area at time of surgery?: No EBL: Minimal Specimen(s): stone sent, no complications
--- NOTE | 2017-12-03 09:09 | POSTANESTH ---
Post Anesthetic Evaluation Cardiovascular Status: Normal, Stable, Similar to Pre-Op Cond Respiratory Status: Normal, Stable, Similar to Pre-op Cond. Level of Consciousness/Mental Status: Moderately Sleepy Pain Control: Adequate, Prn Tx Ordered Nausea/Vomiting Control: Adequate, Prn Tx Ordered Complications Possibly Related to Anesthesia: None Noted
--- NOTE | 2017-12-03 12:27 | GOP ---
DATE OF OPERATION: 12/03/2017 SURGEON: Simone Vergara MD ANESTHESIA: General anesthesia. ANESTHESIOLOGIST: Ani Gomez MD PREOPERATIVE DIAGNOSIS: 1. Hydronephrosis, left kidney. 2. Left distal ureteral calculus. POSTOPERATIVE DIAGNOSIS: 1. Ureteral meatal stenosis with ureteral calculus. 2. Hydronephrosis. PROCEDURE PERFORMED: Cystoscopy, laser incision of the ureteral meatus and ureteroscopic extraction of calculus and fluoroscopy with interpretation. FINDINGS: DESCRIPTION OF PROCEDURE: After undergoing general anesthesia, an appropriate time-out and being pre pped and draped in normal sterile fashion. Urethra normal. Prostate had mild BPH. Bladder had no t umor, stones or foreign bodies. The stones at the left ureteral orifices were impacted and there was an annular ring, so at that point with the holmium laser, I did an incision of the ureteral meatus u p to the point where I felt I could deliver the stone. Stone was extracted and on ureteroscopy, I wa s able to pass the scope up to the mid ureter and there were no residual stones. Appeared to be mini mal problems. I did do a retrograde that revealed no residual pathology of the renal pelvis or urete r. On removal of the scope, fluoroscopy revealed he had good efflux coming from the left ureteral or ifice and there appeared to be no obstruction of the ureter. So at that point, I elected not to plac e a ureteral stent and his bladder was emptied. Uro-Jet placed in the urethra. On exam, penis is normal. Testicles were normal and descended with no masses or suggestion of infect ion. He tolerated the procedure well. He will be discharged home to see me in the office in 3 weeks . /[id number]/MODL
[2017-12-03 13:37] VITALS: BP 123/78
--- NOTE | 2017-12-03 14:42 | PDDCSUM ---
Discharge Summary Discharge Summary: DISCHARGE DIAGNOSES: * acute/subacute obstructing left ureteral stone * acute kidney injury due to above with mild elevation of creatinine CONSULTANTS: Dr. Simone Vergara PROCEDURES: Cysto ureteroscopy, incisional dilation of tight annular ring at left urethral meatus, extraction of left ureteral stone, retrograde ureterogram HOSPITAL COURSE SUMMARY: This patient with no personal or family history of kidney stones had been visiting the ER here for approximately 2 weeks with intermittent left flank pain with suspicion for left kidney stone. There is no sign of infection. He finally came back with recurrent ureteral colic at the time of this admission and found to have a 6 mm kidney stone at the distal urethra with hydronephrosis. His creatinine was elevated on this final visit at 1.6. He was admitted with IV hydration and symptomatic medications. As the stone did not pass symptomatically overnight he was taken to the operating room by Dr. Vergara to remove the stone endoscopically. There were no complications and the patient is feeling well, eating, ambulating the hallway. There has been no sign of infection nor was there purulent urine present. This is the patient's for stone. At this time he is instructed on hydration and depending on the analysis of the stone he may have other specific instructions for kidney stone prevention. His questions have been answered about this. PENDING TEST RESULTS: Kidney stone analysis MEDICATION CHANGES: None FOLLOW-UP PLAN: With Dr. Simone Vergara in 3 weeks INSTRUCTIONS: Patient is instructed to watch closely for any fevers or other symptoms to suggest infection, any difficulty voiding his bladder, any gross hematuria. He is instructed to drink at least 2.5-3 L of water or other fluids daily as a routine habit for the rest of his life Greater than 35 minutes bedside and care coordination time today
== END 2017-12-03 16:48 | disposition home or self-care (01) ==
LOC: F1N 12-02 03:22
PROVIDERS: ADMIT Student in an Organized Health Care Education/Training Program; ATTEND Student in an Organized Health Care Education/Training Program
PROC: 0TCD8ZZ Extirpation of Matter from Urethra, Via Natural or Artificial Opening Endoscopic (ICD-10-PCS; principal; 2017-12-02)
DX: N13.1 Hydronephrosis with ureteral stricture, not elsewhere classified (principal); R79.89 Other specified abnormal findings of blood chemistry; E86.9 Volume depletion, unspecified
CPT/HCPCS: 52315; 74176; 76001; 96361; 96374; 96375; 99285; C1758; C1769; G0378; 82365-90; J0690; J1100; J1170; J1885; J2250; J2405; J2704; J2710; J2765; J3010; Q9967